=== PATIENT | male | born 1930 | race Caucasian/White ===

== ENCOUNTER → 2017-03-31 | Outpatient (REF) | payer MEDICARE, MEDICAID ==
[~2017-03-31] MED LIST: AMLO25TA PO; DORZ2SOL5 OU; DUTA1CAP PO; FENO48TA2 PO; FLOM5CAP PO; HYDR12.55 PO; IPRASOL4 INH; K-TA10TA2 PO; LATA5OPD OU; SIMV40TA2 PO; STOO100C PO; VENO20IN IV; VITA400T2 PO; WARF05TA PO
[2017-03-31 20:32] LABS: PERCENT SATURATION 7.4 % (19.7-50.0)
[2017-03-31 22:11] LABS: FOLATE 13.2 NG/ML
== END ==
LOC: M LAB REF 17:34
PROVIDERS: ATTEND Internal Medicine Nephrology
DX: D64.9 Anemia, unspecified (principal)

== ENCOUNTER → 2017-05-24 | Outpatient (CLI) | payer MEDICARE, MEDICAID ==
[~2017-05-24] MED LIST changes: +ISOVUE-300 61% 50ML VIAL (Q9967) As Ordered ONE; +LIDOCAINE 1% MDV 20ML VIAL As Ordered ONE
--- NOTE | 2017-06-01 16:53 | REPIR ---
DATE OF PROCEDURE: 05/24/2017 PREPROCEDURE DIAGNOSES: Left lower extremity swelling and pain. Left lower extremity deep venous thrombosis (DVT). History of DVT and pulmonary embolus in 2006. Colon cancer. POSTPROCEDURE DIAGNOSIS: Left lower extremity swelling and pain. Left lower extremity deep venous thrombosis (DVT). History of DVT and pulmonary embolus in 2006. Colon cancer. . OPERATIVE PROCEDURE: Ultrasound guided right common femoral vein cannulation, inferior vena cava catheter placement with inferior venacavogram, inferior vena cava filter placement with Celect filter. SURGEON: Gregory Simental MD [employer]PECT[employer] DETAIL: Juany Shelton ANESTHESIA: Local with 10 mL of 2% lidocaine. FLUORO TIME: 2.222 minutes. CONTRAST: None. COMPLICATIONS: None. DRAINS: None. SPECIMENS: None. IMPLANTS: Celect filter in the inferior vena cava. INDICATION: The patient is an 86-year-old male with left lower extremity DVT and inability to undergo anticoagulation due to colon cancer which will require surgery. The patient will undergo and IVC filter placement for prevention of pulmonary embolus. The risks, benefits and alternative treatment options were discussed with the patient. DESCRIPTION OF PROCEDURE: The patient was taken to the angiography suite, placed supine on the angiography table and then prepped and draped in a standard surgical fashion. Ultrasound was used to guide cannulation of the right common femoral vein with a micropuncture needle after evaluating the right common femoral vein which was noted to be easily compressible and free of thrombus and widely patent. The ultrasound was used to guide cannulation with real-time concurrent visualization of the entry of the micropuncture needle into the right common femoral vein with a hard copy image preserved. The micropuncture wire was advanced through the micropuncture needle which was upsized to a micropuncture sheath. A wire was advanced through the micropuncture sheath which was upsized to a sheath which was placed in the inferior vena cava. Due to the patient's chronic renal insufficiency an inferior venacavogram was not performed and the inferior vena cava filter was placed at the lumbar 3, lumbar 4 level under fluoroscopic guidance. Final fluoroscopic showed the filter to be in good position and good alignment. The sheath was removed and manual compression applied for hemostasis. Dressings were then applied. The patient tolerated the procedure well. All instrument, sponge and needle counts were correct at the end of the case. There were no complications. Dr. Simental was present for and directed the entire case. The patient was transferred to the holding area and subsequently transferred back to [facility] in stable condition. RADIOLOGIC SUPERVISION AND INTERPRETATION: The ultrasound showed the right common femoral vein to be easily compressible, widely patent and free of thrombus. Ultrasound was used to guide cannulation with real-time concurrent visualization of the entry of the needle into the right common femoral vein and catheter was placed in the inferior vena cava at the lumbar 3-4 level. The filter was then deployed at the lumbar 3-4 level with no venogram being performed due to chronic renal insufficiency.
== END | disposition home or self-care (01) ==
LOC: M IRPRO 12:00
PROVIDERS: ATTEND Internal Medicine Cardiovascular Disease
DX: I82.4Z2 Acute embolism and thrombosis of unspecified deep veins of left distal lower extremity (principal); C18.9 Malignant neoplasm of colon, unspecified; Z86.711 Personal history of pulmonary embolism
CPT/HCPCS: 37191; C1769; C1880; C1894; Q9967

== ENCOUNTER 2017-06-22 13:11 | Inpatient (IN) | payer MEDICARE, MEDICAID ==
[~2017-06-22 13:11] MED LIST changes: -AMLO25TA PO; -DORZ2SOL5 OU; -DUTA1CAP PO; -FENO48TA2 PO; -FLOM5CAP PO; -HYDR12.55 PO; -IPRASOL4 INH; -ISOVUE-300 61% 50ML VIAL (Q9967) As Ordered ONE; -K-TA10TA2 PO; -LATA5OPD OU; -LIDOCAINE 1% MDV 20ML VIAL As Ordered ONE; +MIRALAX *UNIT DOSE* 17GM PACKET PO; -SIMV40TA2 PO; -STOO100C PO; -VENO20IN IV; -VITA400T2 PO; -WARF05TA PO
[2017-06-22] MEDS: WARFARIN SOD 2 MG TAB PO (17:07)
[2017-06-22] MEDS: DOCUSATE SODIUM 100 MG CAP PO (21:19)
[2017-06-22] MEDS: SIMVASTATIN 40 MG TAB PO (21:19)
[2017-06-22] MEDS: LATANOPROST 0.005% OPHTH SOLN 2.5 ML OU (21:19)
[2017-06-22] MEDS: TAMSULOSIN 0.4 MG CAP PO (21:19)
[2017-06-22] MEDS: DUTASTERIDE 0.5 MG CAP (AVODART) PO (21:19)
[2017-06-23 07:29] LABS: BASO % 0.5 % (0.0-1.0); EOS # 0.3 10^3/uL (0.0-0.50); HEMOGLOBIN 8.9 g/dl (14.0-18.0); IMMATURE GRANULOCYTE % 0.4 % (0-0); LYMPH # 1.7 10^3/uL (1.5-4.5); LYMPH % 21.4 % (24.0-44.0); MEAN CORPUSCULAR HEMOGLOBIN 27.6 pg (27.0-33.0); MEAN CORPUSCULAR HGB CONC 30.7 g/dl (32.0-36.5); MEAN CORPUSCULAR VOLUME 90.1 fl (80.0-96.0); MONO # 0.8 10^3/uL (0.0-0.8); MONO % 10.1 % (0.0-5.0); NEUTROPHILS % 63.6 % (36.0-66.0); PLATELET COUNT, AUTOMATED 377 10^3/uL (150-450); RED BLOOD COUNT 3.22 10^6/uL (4.30-6.10); RED CELL DISTRIBUTION WIDTH 17.8 % (11.5-14.5); WHITE BLOOD COUNT 7.8 10^3/uL (4.0-10.0)
[2017-06-23 07:45] LABS: INR 2.33; PROTHROMBIN TIME 26.5 SECONDS (12.4-14.5)
[2017-06-23 07:48] LABS: ALBUMIN 2.2 GM/DL (3.2-5.2); ALBUMIN/GLOBULIN RATIO 0.67 (1.00-1.93); ALKALINE PHOSPHATASE 65 U/L (45-117); ALT/SGPT 18 U/L (12-78); ANION GAP 6 MEQ/L (8-16); AST/SGOT 18 U/L (7-37); BILIRUBIN,TOTAL 0.2 MG/DL (0.2-1.0); BLOOD UREA NITROGEN 19 MG/DL (7-18); CALCIUM LEVEL 8.1 MG/DL (8.8-10.2); CARBON DIOXIDE LEVEL 28 MEQ/L (21-32); CHLORIDE LEVEL 108 MEQ/L (98-107); FERRITIN 434 NG/ML (26-388); GLOMERULAR FILTRATION RATE > 60.0 (>35); GLUCOSE, FASTING 81 MG/DL (83-110); IRON (FE) 59 UG/DL (65-175); PERCENT SATURATION 22.9 % (19.7-50.0); POTASSIUM SERUM 4.5 MEQ/L (3.5-5.1); SODIUM LEVEL 142 MEQ/L (136-145); TOTAL IRON BINDING CAPACITY 258 UG/DL (250-450); TOTAL PROTEIN 5.5 GM/DL (6.4-8.2)
[2017-06-23] MEDS: DOCUSATE SODIUM 100 MG CAP PO ×2 (08:13→21:00)
[2017-06-23] MEDS: FENOFIBRATE 48 MG TAB (TRICOR) PO (08:13)
[2017-06-23] MEDS: VITAMIN D (CHOLECALCIFEROL) 400 INTERNATIONAL UNITS TAB PO (08:13)
[2017-06-23] MEDS: traMADol 50 MG TAB PO (08:59)
[2017-06-23 10:35] LABS: VITAMIN B12 LEVEL 242 PG/ML (247-911)
[2017-06-23 13:10] LABS: KETONE, URINE AUTO RFX NEGATIVE (NEGATIVE); MUCUS, URINE RFX SMALL (NEGATIVE); NITRITE, URINE AUTO RFX NEGATIVE (NEGATIVE); RBC, URINE AUTO RFX 15 /HPF (0-3); SPECIFIC GRAVITY UR AUTO RFX 1.019 (1.002-1.035); SQUAM EPITHELIAL CELL UR AURFX 0 /HPF (0-6)
[2017-06-23 13:19] LABS: LEUKOCYTE ESTERASE UR AUTO RFX 3+ (NEGATIVE)
[2017-06-23 13:20] LABS: WBC, URINE AUTO RFX 179 /HPF (0-3)
[2017-06-23] MEDS: WARFARIN SOD 1 MG TAB PO (17:15)
[2017-06-23] MEDS: DUTASTERIDE 0.5 MG CAP (AVODART) PO (21:20)
[2017-06-23] MEDS: SIMVASTATIN 40 MG TAB PO (21:20)
[2017-06-23] MEDS: LATANOPROST 0.005% OPHTH SOLN 2.5 ML OU (21:20)
[2017-06-23] MEDS: TAMSULOSIN 0.4 MG CAP PO (21:20)
[2017-06-24 07:04] LABS: HEMATOCRIT 28.1 % (42.0-52.0); HEMOGLOBIN 8.6 g/dl (14.0-18.0); MEAN CORPUSCULAR HEMOGLOBIN 27.7 pg (27.0-33.0); MEAN CORPUSCULAR HGB CONC 30.6 g/dl (32.0-36.5); MEAN CORPUSCULAR VOLUME 90.6 fl (80.0-96.0); PLATELET COUNT, AUTOMATED 390 10^3/uL (150-450); WHITE BLOOD COUNT 8.7 10^3/uL (4.0-10.0)
[2017-06-24 07:23] LABS: ALBUMIN 2.2 GM/DL (3.2-5.2); ALBUMIN/GLOBULIN RATIO 0.71 (1.00-1.93); ALKALINE PHOSPHATASE 64 U/L (45-117); ALT/SGPT 19 U/L (12-78); ANION GAP 8 MEQ/L (8-16); AST/SGOT 15 U/L (7-37); BILIRUBIN,TOTAL 0.1 MG/DL (0.2-1.0); BLOOD UREA NITROGEN 24 MG/DL (7-18); CALCIUM LEVEL 8.1 MG/DL (8.8-10.2); CARBON DIOXIDE LEVEL 25 MEQ/L (21-32); CHLORIDE LEVEL 109 MEQ/L (98-107); CREATININE FOR GFR 0.92 MG/DL (0.70-1.30); GLOMERULAR FILTRATION RATE > 60.0 (>35); GLUCOSE, FASTING 87 MG/DL (83-110); POTASSIUM SERUM 4.2 MEQ/L (3.5-5.1); SODIUM LEVEL 142 MEQ/L (136-145); TOTAL PROTEIN 5.3 GM/DL (6.4-8.2)
[2017-06-24 07:27] LABS: INR 2.25; PROTHROMBIN TIME 25.7 SECONDS (12.4-14.5)
[2017-06-24] MEDS: FENOFIBRATE 48 MG TAB (TRICOR) PO (08:40)
[2017-06-24] MEDS: DOCUSATE SODIUM 100 MG CAP PO ×2 (08:40→21:40)
[2017-06-24] MEDS: VITAMIN D (CHOLECALCIFEROL) 400 INTERNATIONAL UNITS TAB PO (08:40)
[2017-06-24] MEDS: traMADol 50 MG TAB PO (09:35)
[2017-06-24] MEDS: WARFARIN SOD 2 MG TAB PO (16:56)
[2017-06-24] MEDS: SIMVASTATIN 40 MG TAB PO (21:40)
[2017-06-24] MEDS: TAMSULOSIN 0.4 MG CAP PO (21:40)
[2017-06-24] MEDS: DUTASTERIDE 0.5 MG CAP (AVODART) PO (21:40)
[2017-06-24] MEDS: LATANOPROST 0.005% OPHTH SOLN 2.5 ML OU (21:41)
[2017-06-25 06:27] LABS: HEMATOCRIT 29.1 % (42.0-52.0); HEMOGLOBIN 8.8 g/dl (14.0-18.0); MEAN CORPUSCULAR HEMOGLOBIN 27.3 pg (27.0-33.0); MEAN CORPUSCULAR HGB CONC 30.2 g/dl (32.0-36.5); MEAN CORPUSCULAR VOLUME 90.4 fl (80.0-96.0); PLATELET COUNT, AUTOMATED 382 10^3/uL (150-450); RED BLOOD COUNT 3.22 10^6/uL (4.30-6.10); RED CELL DISTRIBUTION WIDTH 17.9 % (11.5-14.5); WHITE BLOOD COUNT 10.1 10^3/uL (4.0-10.0)
[2017-06-25 06:53] LABS: INR 2.07
[2017-06-25 06:55] LABS: ALBUMIN 2.4 GM/DL (3.2-5.2); ALBUMIN/GLOBULIN RATIO 0.83 (1.00-1.93); ALKALINE PHOSPHATASE 72 U/L (45-117); ALT/SGPT 20 U/L (12-78); ANION GAP 3 MEQ/L (8-16); AST/SGOT 23 U/L (7-37); BILIRUBIN,TOTAL 0.2 MG/DL (0.2-1.0); BLOOD UREA NITROGEN 24 MG/DL (7-18); CALCIUM LEVEL 7.9 MG/DL (8.8-10.2); CARBON DIOXIDE LEVEL 28 MEQ/L (21-32); CHLORIDE LEVEL 108 MEQ/L (98-107); CREATININE FOR GFR 0.84 MG/DL (0.70-1.30); GLOMERULAR FILTRATION RATE > 60.0 (>35); GLUCOSE, FASTING 84 MG/DL (83-110); POTASSIUM SERUM 4.8 MEQ/L (3.5-5.1); SODIUM LEVEL 139 MEQ/L (136-145); TOTAL PROTEIN 5.3 GM/DL (6.4-8.2)
[2017-06-25] MEDS: DOXYCYCLINE HYCLATE 100 MG TAB PO ×2 (09:00→18:29)
[2017-06-25] MEDS: VITAMIN D (CHOLECALCIFEROL) 400 INTERNATIONAL UNITS TAB PO (09:18)
[2017-06-25] MEDS: DOCUSATE SODIUM 100 MG CAP PO ×2 (09:18→22:01)
[2017-06-25] MEDS: FENOFIBRATE 48 MG TAB (TRICOR) PO (09:18)
[2017-06-25] MEDS: COSOPT OU ×2 (18:00→22:30)
[2017-06-25] MEDS: WARFARIN SOD 2 MG TAB PO (18:05)
[2017-06-25] MEDS: ACETAMINOPHEN TAB 650MG DOSE (2X325MG) PO (18:29)
[2017-06-25] MEDS: SIMVASTATIN 40 MG TAB PO (22:01)
[2017-06-25] MEDS: DUTASTERIDE 0.5 MG CAP (AVODART) PO (22:01)
[2017-06-25] MEDS: LATANOPROST 0.005% OPHTH SOLN 2.5 ML OU (22:01)
[2017-06-25] MEDS: TAMSULOSIN 0.4 MG CAP PO (22:01)
[2017-06-26] MEDS: ACETAMINOPHEN TAB 650MG DOSE (2X325MG) PO ×2 (06:15→17:23)
[2017-06-26] MEDS: IPRATROPIUM 0.5MG/ALBUTEROL 2.5MG INH SOL UD 3ML (DUONEB)(J7620) NEB (06:51)
[2017-06-26 07:22] LABS: INR 1.73; PROTHROMBIN TIME 20.8 SECONDS (12.4-14.5)
[2017-06-26] MEDS: FENOFIBRATE 48 MG TAB (TRICOR) PO (08:52)
[2017-06-26] MEDS: VITAMIN D (CHOLECALCIFEROL) 400 INTERNATIONAL UNITS TAB PO (08:52)
[2017-06-26] MEDS: DOCUSATE SODIUM 100 MG CAP PO ×2 (08:52→21:40)
[2017-06-26] MEDS: DOXYCYCLINE HYCLATE 100 MG TAB PO ×2 (08:52→21:40)
[2017-06-26] MEDS: COSOPT OU ×2 (08:53→17:24)
[2017-06-26 14:50] LABS: BASO % 0.2 % (0.0-1.0); EOS % 0.3 % (0.0-3.0); HEMATOCRIT 29.1 % (42.0-52.0); HEMOGLOBIN 8.8 g/dl (14.0-18.0); IMMATURE GRANULOCYTE # 0.1 10^3/uL (0-0); IMMATURE GRANULOCYTE % 0.6 % (0-0); LYMPH # 0.9 10^3/uL (1.5-4.5); LYMPH % 10.4 % (24.0-44.0); MEAN CORPUSCULAR HEMOGLOBIN 27.7 pg (27.0-33.0); MEAN CORPUSCULAR HGB CONC 30.2 g/dl (32.0-36.5); MEAN CORPUSCULAR VOLUME 91.5 fl (80.0-96.0); MONO # 0.8 10^3/uL (0.0-0.8); MONO % 9.5 % (0.0-5.0); NEUTROPHILS # 6.9 10^3/uL (1.8-7.7); PLATELET COUNT, AUTOMATED 312 10^3/uL (150-450); RED BLOOD COUNT 3.18 10^6/uL (4.30-6.10); RED CELL DISTRIBUTION WIDTH 18.3 % (11.5-14.5); WHITE BLOOD COUNT 8.7 10^3/uL (4.0-10.0)
[2017-06-26 15:14] LABS: ANION GAP 5 MEQ/L (8-16); BLOOD UREA NITROGEN 24 MG/DL (7-18); C REACTIVE PROTEIN QUANTITATIV 7.73 MG/DL (0.00-0.30); CALCIUM LEVEL 8.4 MG/DL (8.8-10.2); CARBON DIOXIDE LEVEL 31 MEQ/L (21-32); CHLORIDE LEVEL 103 MEQ/L (98-107); CREATININE FOR GFR 0.98 MG/DL (0.70-1.30); GLOMERULAR FILTRATION RATE > 60.0 (>35); GLUCOSE, FASTING 96 MG/DL (83-110); POTASSIUM SERUM 4.3 MEQ/L (3.5-5.1); SODIUM LEVEL 139 MEQ/L (136-145)
[2017-06-26 15:16] LABS: LACTIC ACID SEPSIS PROTOCOL 1.8 MMOL/L (0.4-2.0)
[2017-06-26] MEDS: LevoFLOXacin 500 MG TABLET PO (15:19)
[2017-06-26] MEDS: WARFARIN SOD 2 MG TAB PO (17:22)
[2017-06-26] MEDS: LATANOPROST 0.005% OPHTH SOLN 2.5 ML OU (21:00)
[2017-06-26] MEDS: SIMVASTATIN 40 MG TAB PO (21:39)
[2017-06-26] MEDS: TAMSULOSIN 0.4 MG CAP PO (21:40)
[2017-06-26] MEDS: DUTASTERIDE 0.5 MG CAP (AVODART) PO (21:40)
[2017-06-27] MEDS: LevoFLOXacin 500 MG TABLET PO (05:50)
[2017-06-27] MEDS: ACETAMINOPHEN TAB 650MG DOSE (2X325MG) PO ×2 (05:50→13:33)
[2017-06-27] MEDS: FENOFIBRATE 48 MG TAB (TRICOR) PO (08:24)
[2017-06-27] MEDS: VITAMIN D (CHOLECALCIFEROL) 400 INTERNATIONAL UNITS TAB PO (08:24)
[2017-06-27] MEDS: DOCUSATE SODIUM 100 MG CAP PO ×2 (08:24→21:00)
[2017-06-27] MEDS: DOXYCYCLINE HYCLATE 100 MG TAB PO ×2 (08:24→21:08)
[2017-06-27] MEDS: COSOPT OU ×2 (08:25→17:27)
[2017-06-27 08:35] LABS: HEMATOCRIT 30.8 % (42.0-52.0); HEMOGLOBIN 9.4 g/dl (14.0-18.0); MEAN CORPUSCULAR HEMOGLOBIN 27.6 pg (27.0-33.0); MEAN CORPUSCULAR HGB CONC 30.5 g/dl (32.0-36.5); MEAN CORPUSCULAR VOLUME 90.6 fl (80.0-96.0); PLATELET COUNT, AUTOMATED 314 10^3/uL (150-450); WHITE BLOOD COUNT 8.9 10^3/uL (4.0-10.0)
[2017-06-27 08:47] LABS: INR 1.61; PROTHROMBIN TIME 19.6 SECONDS (12.4-14.5)
[2017-06-27 09:38] LABS: ALBUMIN 2.5 GM/DL (3.2-5.2); ALBUMIN/GLOBULIN RATIO 0.71 (1.00-1.93); ALKALINE PHOSPHATASE 66 U/L (45-117); ALT/SGPT 24 U/L (12-78); ANION GAP 7 MEQ/L (8-16); AST/SGOT 24 U/L (7-37); BILIRUBIN,TOTAL 0.3 MG/DL (0.2-1.0); BLOOD UREA NITROGEN 30 MG/DL (7-18); CALCIUM LEVEL 8.5 MG/DL (8.8-10.2); CARBON DIOXIDE LEVEL 29 MEQ/L (21-32); CHLORIDE LEVEL 104 MEQ/L (98-107); CREATININE FOR GFR 1.19 MG/DL (0.70-1.30); GLOMERULAR FILTRATION RATE > 60.0 (>35); GLUCOSE, FASTING 134 MG/DL (83-110); POTASSIUM SERUM 4.2 MEQ/L (3.5-5.1); SODIUM LEVEL 140 MEQ/L (136-145)
[2017-06-27] MEDS: WARFARIN SOD 5 MG TAB PO (17:27)
[2017-06-27] MEDS: DUTASTERIDE 0.5 MG CAP (AVODART) PO (21:08)
[2017-06-27] MEDS: SIMVASTATIN 40 MG TAB PO (21:08)
[2017-06-27] MEDS: TAMSULOSIN 0.4 MG CAP PO (21:08)
[2017-06-27] MEDS: LATANOPROST 0.005% OPHTH SOLN 2.5 ML OU (21:09)
[2017-06-28] MEDS: LevoFLOXacin 500 MG TABLET PO (05:42)
[2017-06-28 07:25] LABS: HEMATOCRIT 26.7 % (42.0-52.0); HEMOGLOBIN 8.3 g/dl (14.0-18.0); MEAN CORPUSCULAR HEMOGLOBIN 27.9 pg (27.0-33.0); MEAN CORPUSCULAR HGB CONC 31.1 g/dl (32.0-36.5); MEAN CORPUSCULAR VOLUME 89.6 fl (80.0-96.0); PLATELET COUNT, AUTOMATED 300 10^3/uL (150-450); RED BLOOD COUNT 2.98 10^6/uL (4.30-6.10); RED CELL DISTRIBUTION WIDTH 18.1 % (11.5-14.5)
[2017-06-28 07:32] LABS: INR 1.73; PROTHROMBIN TIME 20.7 SECONDS (12.4-14.5)
[2017-06-28] MEDS: VITAMIN D (CHOLECALCIFEROL) 400 INTERNATIONAL UNITS TAB PO (07:43)
[2017-06-28] MEDS: FENOFIBRATE 48 MG TAB (TRICOR) PO (07:43)
[2017-06-28] MEDS: DOXYCYCLINE HYCLATE 100 MG TAB PO ×2 (07:43→21:13)
[2017-06-28] MEDS: COSOPT OU ×2 (07:43→17:00)
[2017-06-28] MEDS: DOCUSATE SODIUM 100 MG CAP PO ×2 (07:44→21:13)
[2017-06-28 07:50] LABS: ALBUMIN 2.2 GM/DL (3.2-5.2); ALBUMIN/GLOBULIN RATIO 0.59 (1.00-1.93); ALKALINE PHOSPHATASE 59 U/L (45-117); ALT/SGPT 19 U/L (12-78); ANION GAP 4 MEQ/L (8-16); AST/SGOT 23 U/L (7-37); BILIRUBIN,TOTAL 0.3 MG/DL (0.2-1.0); BLOOD UREA NITROGEN 27 MG/DL (7-18); CALCIUM LEVEL 8.2 MG/DL (8.8-10.2); CARBON DIOXIDE LEVEL 29 MEQ/L (21-32); CHLORIDE LEVEL 108 MEQ/L (98-107); CREATININE FOR GFR 0.95 MG/DL (0.70-1.30); GLOMERULAR FILTRATION RATE > 60.0 (>35); GLUCOSE, FASTING 96 MG/DL (83-110); SODIUM LEVEL 141 MEQ/L (136-145); TOTAL PROTEIN 5.9 GM/DL (6.4-8.2)
[2017-06-28] MEDS: ACETAMINOPHEN TAB 650MG DOSE (2X325MG) PO (14:06)
[2017-06-28] MEDS: WARFARIN SOD 2.5 MG TAB PO (16:59)
[2017-06-28] MEDS: DUTASTERIDE 0.5 MG CAP (AVODART) PO (21:13)
[2017-06-28] MEDS: TAMSULOSIN 0.4 MG CAP PO (21:13)
[2017-06-28] MEDS: LATANOPROST 0.005% OPHTH SOLN 2.5 ML OU (21:13)
[2017-06-28] MEDS: SIMVASTATIN 40 MG TAB PO (21:13)
[2017-06-29] MEDS: LevoFLOXacin 500 MG TABLET PO (05:59)
[2017-06-29 06:51] LABS: HEMOGLOBIN 8.2 g/dl (14.0-18.0); MEAN CORPUSCULAR HEMOGLOBIN 27.2 pg (27.0-33.0); MEAN CORPUSCULAR HGB CONC 30.4 g/dl (32.0-36.5); MEAN CORPUSCULAR VOLUME 89.7 fl (80.0-96.0); PLATELET COUNT, AUTOMATED 289 10^3/uL (150-450); RED BLOOD COUNT 3.01 10^6/uL (4.30-6.10); RED CELL DISTRIBUTION WIDTH 18.1 % (11.5-14.5); WHITE BLOOD COUNT 5.7 10^3/uL (4.0-10.0)
[2017-06-29 07:09] LABS: INR 1.74; PROTHROMBIN TIME 20.9 SECONDS (12.4-14.5)
[2017-06-29] MEDS: DOXYCYCLINE HYCLATE 100 MG TAB PO ×2 (09:07→20:26)
[2017-06-29] MEDS: VITAMIN D (CHOLECALCIFEROL) 400 INTERNATIONAL UNITS TAB PO (09:07)
[2017-06-29] MEDS: COSOPT OU ×2 (09:07→17:01)
[2017-06-29] MEDS: ACETAMINOPHEN TAB 650MG DOSE (2X325MG) PO (09:07)
[2017-06-29] MEDS: FENOFIBRATE 48 MG TAB (TRICOR) PO (09:07)
[2017-06-29] MEDS: DOCUSATE SODIUM 100 MG CAP PO ×2 (09:07→20:26)
[2017-06-29] MEDS: traMADol 50 MG TAB PO (12:50)
[2017-06-29] MEDS: WARFARIN SOD 5 MG TAB PO (17:01)
[2017-06-29] MEDS: SIMVASTATIN 40 MG TAB PO (20:26)
[2017-06-29] MEDS: DUTASTERIDE 0.5 MG CAP (AVODART) PO (20:26)
[2017-06-29] MEDS: LATANOPROST 0.005% OPHTH SOLN 2.5 ML OU (20:26)
[2017-06-29] MEDS: TAMSULOSIN 0.4 MG CAP PO (20:26)
[2017-06-30] MEDS: LevoFLOXacin 500 MG TABLET PO (05:35)
[2017-06-30 07:13] LABS: HEMATOCRIT 27.1 % (42.0-52.0); HEMOGLOBIN 8.2 g/dl (14.0-18.0); MEAN CORPUSCULAR HEMOGLOBIN 27.2 pg (27.0-33.0); MEAN CORPUSCULAR HGB CONC 30.3 g/dl (32.0-36.5); PLATELET COUNT, AUTOMATED 282 10^3/uL (150-450); RED BLOOD COUNT 3.01 10^6/uL (4.30-6.10); RED CELL DISTRIBUTION WIDTH 17.9 % (11.5-14.5); WHITE BLOOD COUNT 4.4 10^3/uL (4.0-10.0)
[2017-06-30 07:24] LABS: ALBUMIN 2.1 GM/DL (3.2-5.2); ALBUMIN/GLOBULIN RATIO 0.58 (1.00-1.93); ALKALINE PHOSPHATASE 54 U/L (45-117); ALT/SGPT 25 U/L (12-78); ANION GAP 4 MEQ/L (8-16); AST/SGOT 29 U/L (7-37); BILIRUBIN,TOTAL 0.2 MG/DL (0.2-1.0); BLOOD UREA NITROGEN 32 MG/DL (7-18); CALCIUM LEVEL 8.3 MG/DL (8.8-10.2); CARBON DIOXIDE LEVEL 29 MEQ/L (21-32); CHLORIDE LEVEL 110 MEQ/L (98-107); CREATININE FOR GFR 0.94 MG/DL (0.70-1.30); GLOMERULAR FILTRATION RATE > 60.0 (>35); GLUCOSE, FASTING 88 MG/DL (83-110); POTASSIUM SERUM 4.3 MEQ/L (3.5-5.1); SODIUM LEVEL 143 MEQ/L (136-145); TOTAL PROTEIN 5.7 GM/DL (6.4-8.2)
[2017-06-30 07:26] LABS: INR 2.51; PROTHROMBIN TIME 28.1 SECONDS (12.4-14.5)
[2017-06-30] MEDS: COSOPT OU ×2 (08:00→18:00)
[2017-06-30] MEDS: DOXYCYCLINE HYCLATE 100 MG TAB PO ×2 (10:13→20:35)
[2017-06-30] MEDS: DOCUSATE SODIUM 100 MG CAP PO ×2 (10:13→20:35)
[2017-06-30] MEDS: FENOFIBRATE 48 MG TAB (TRICOR) PO (10:13)
[2017-06-30] MEDS: VITAMIN D (CHOLECALCIFEROL) 400 INTERNATIONAL UNITS TAB PO (10:13)
[2017-06-30] MEDS: WARFARIN SOD 2.5 MG TAB PO (17:00)
[2017-06-30] MEDS: LATANOPROST 0.005% OPHTH SOLN 2.5 ML OU (20:35)
[2017-06-30] MEDS: DUTASTERIDE 0.5 MG CAP (AVODART) PO (20:35)
[2017-06-30] MEDS: SIMVASTATIN 40 MG TAB PO (20:35)
[2017-06-30] MEDS: TAMSULOSIN 0.4 MG CAP PO (20:35)
[2017-07-01] MEDS: LevoFLOXacin 500 MG TABLET PO (05:31)
[2017-07-01 07:18] LABS: HEMATOCRIT 27.6 % (42.0-52.0); HEMOGLOBIN 8.4 g/dl (14.0-18.0); MEAN CORPUSCULAR HEMOGLOBIN 27.3 pg (27.0-33.0); MEAN CORPUSCULAR HGB CONC 30.4 g/dl (32.0-36.5); MEAN CORPUSCULAR VOLUME 89.6 fl (80.0-96.0); PLATELET COUNT, AUTOMATED 299 10^3/uL (150-450); RED BLOOD COUNT 3.08 10^6/uL (4.30-6.10); RED CELL DISTRIBUTION WIDTH 17.8 % (11.5-14.5); WHITE BLOOD COUNT 4.9 10^3/uL (4.0-10.0)
[2017-07-01 07:31] LABS: INR 2.93; PROTHROMBIN TIME 31.9 SECONDS (12.4-14.5)
[2017-07-01] MEDS: FENOFIBRATE 48 MG TAB (TRICOR) PO (08:47)
[2017-07-01] MEDS: DOXYCYCLINE HYCLATE 100 MG TAB PO (08:47)
[2017-07-01] MEDS: DOCUSATE SODIUM 100 MG CAP PO (08:47)
[2017-07-01] MEDS: VITAMIN D (CHOLECALCIFEROL) 400 INTERNATIONAL UNITS TAB PO (08:47)
[2017-07-01] MEDS: COSOPT OU (08:47)
== END 2017-07-01 11:55 | disposition home health service (06) | DRG 949 ==
LOC: M PM&R 13:11
DX: Z48.3 Aftercare following surgery for neoplasm (principal); J18.9 Pneumonia, unspecified organism; C18.2 Malignant neoplasm of ascending colon; E46 Unspecified protein-calorie malnutrition; N39.0 Urinary tract infection, site not specified; K21.9 Gastro-esophageal reflux disease without esophagitis; N18.3 Chronic kidney disease, stage 3 (moderate); N40.1 Benign prostatic hyperplasia with lower urinary tract symptoms; H40.9 Unspecified glaucoma; D64.9 Anemia, unspecified; B95.2 Enterococcus as the cause of diseases classified elsewhere; E78.5 Hyperlipidemia, unspecified; H91.93 Unspecified hearing loss, bilateral; I12.9 Hypertensive chronic kidney disease with stage 1 through stage 4 chronic kidney disease, or unspecified chronic kidney disease; Z86.711 Personal history of pulmonary embolism; Z95.9 Presence of cardiac and vascular implant and graft, unspecified; Z91.048 Other nonmedicinal substance allergy status; Z79.01 Long term (current) use of anticoagulants; Z79.899 Other long term (current) drug therapy; Z97.4 Presence of external hearing-aid; Z96.0 Presence of urogenital implants; Z86.718 Personal history of other venous thrombosis and embolism; Z90.49 Acquired absence of other specified parts of digestive tract

== ENCOUNTER → 2018-11-07 | Outpatient (REF) | payer MEDICARE, MEDICAID ==
[~2018-11-07] MED LIST changes: +AMLO25TA PO; +COUM2.5T17 PO; +DORZ2SOL5 OU; +DOXY-350 PO; +DUTA1CAP PO; +FENO45CA3 PO; +FENO48TA2 PO; +FLOM0.4C39 PO; +HYDR12.55 PO; +IPRA0.00 INH; +K-TA10TA2 PO; +LATA0.0013 OU; +LEVA1TAB2 PO; +MIRA33504 PO; -MIRALAX *UNIT DOSE* 17GM PACKET PO; +SIMV40TA2 PO; +STOO100C PO; +TYLE325T5 PO; +VENO20IN IV; +VITA400T2 PO; +WARF05TA PO; +WARF4TAB51 PO; +WARF4TAB52 PO
[2018-11-07 18:25] LABS: BASO % 0.3 % (0.0-1.0); EOS # 0.1 10^3/uL (0.0-0.50); EOS % 1.5 % (0.0-3.0); HEMATOCRIT 43.7 % (42.0-52.0); HEMOGLOBIN 13.4 g/dl (13.5-17.5); LYMPH # 1.4 10^3/uL (1.5-4.5); LYMPH % 18.5 % (24.0-44.0); MEAN CORPUSCULAR HEMOGLOBIN 29.6 pg (27.0-33.0); MEAN CORPUSCULAR HGB CONC 30.7 g/dl (32.0-36.5); MEAN CORPUSCULAR VOLUME 96.7 fl (80.0-96.0); MONO # 0.9 10^3/uL (0.0-0.8); MONO % 12.8 % (0.0-5.0); NEUTROPHILS # 4.9 10^3/uL (1.8-7.7); NEUTROPHILS % 66.8 % (36.0-66.0); PLATELET COUNT, AUTOMATED 295 10^3/uL (150-450); RED BLOOD COUNT 4.52 10^6/uL (4.30-6.10); WHITE BLOOD COUNT 7.4 10^3/uL (4.0-10.0)
== END ==
LOC: M LAB REF 17:11
PROVIDERS: ATTEND Internal Medicine Nephrology
DX: D50.9 Iron deficiency anemia, unspecified (principal)

== ENCOUNTER → 2020-08-14 | Outpatient (REF) ==
[~2020-08-14] MED LIST changes: -DUTA1CAP PO; +DUTA1CAP2 PO; -FENO48TA2 PO; +FENO48TA7 PO; +MM S100C PO; -SIMV40TA2 PO; +SIMV40TA20 PO; -STOO100C PO
[2020-08-14 08:59] LABS: INR 1.66
== END ==
LOC: SKLAB2 08:57
DX: Z51.81 Encounter for therapeutic drug level monitoring (principal); Z79.899 Other long term (current) drug therapy

== ENCOUNTER → 2020-08-20 | Outpatient (REF) | payer OTHER | LOC: SKLAB2 08:00 | PROVIDERS: ATTEND Internal Medicine | DX: Z11.52 Encounter for screening for COVID-19 (principal) ==

== ENCOUNTER → 2020-08-21 | Outpatient (REF) | payer MEDICAID, MEDICARE ==
[2020-08-21 08:43] LABS: HEMATOCRIT 34.7 % (42.0-52.0); HEMOGLOBIN 10.9 g/dl (13.5-17.5); MEAN CORPUSCULAR HEMOGLOBIN 29.5 pg (27.0-33.0); MEAN CORPUSCULAR HGB CONC 31.4 g/dl (32.0-36.5); PLATELET COUNT, AUTOMATED 245 10^3/uL (150-450); RED BLOOD COUNT 3.69 10^6/uL (4.30-6.10); WHITE BLOOD COUNT 7.8 10^3/uL (4.0-10.0)
[2020-08-21 09:11] LABS: ALBUMIN 2.6 GM/DL (3.2-5.2); ALT/SGPT 30 U/L (12-78); BILIRUBIN,TOTAL 0.3 MG/DL (0.2-1.0); BLOOD UREA NITROGEN 23 MG/DL (7-18); CALCIUM LEVEL 8.4 MG/DL (8.8-10.2); CARBON DIOXIDE LEVEL 26 MEQ/L (21-32); CHLORIDE LEVEL 110 MEQ/L (98-107); CREATININE FOR GFR 1.03 MG/DL (0.70-1.30); GLOMERULAR FILTRATION RATE > 60.0 (>35); GLUCOSE, FASTING 79 MG/DL (70-100); IRON (FE) 66 UG/DL (65-175); PERCENT SATURATION 24.1 % (19.7-50.0); POTASSIUM SERUM 4.4 MEQ/L (3.5-5.1); SODIUM LEVEL 142 MEQ/L (136-145); TOTAL IRON BINDING CAPACITY 274 UG/DL (250-450); TOTAL PROTEIN 5.6 GM/DL (6.4-8.2)
== END ==
LOC: SKLAB5 07:44
DX: N18.9 Chronic kidney disease, unspecified (principal); D63.1 Anemia in chronic kidney disease; Z86.711 Personal history of pulmonary embolism; Z86.718 Personal history of other venous thrombosis and embolism; Z79.899 Other long term (current) drug therapy

== ENCOUNTER → 2020-08-27 | Outpatient (REF) | payer MEDICARE, MEDICAID | LOC: SKLAB5 07:09 | PROVIDERS: ATTEND Internal Medicine | DX: Z20.822 Contact with and (suspected) exposure to COVID-19 (principal) ==

== ENCOUNTER → 2020-09-12 | Outpatient (REF) | payer MEDICARE, MEDICAID | LOC: SKLAB5 07:02 | PROVIDERS: ATTEND Internal Medicine | DX: Z20.822 Contact with and (suspected) exposure to COVID-19 (principal) ==

== ENCOUNTER → 2020-09-16 | Outpatient (REF) | payer MEDICARE, MEDICAID ==
[2020-09-16 09:12] LABS: BASO % 0.3 % (0.0-1.0); EOS # 0.3 10^3/uL (0.0-0.5); EOS % 4.2 % (0.0-3.0); HEMATOCRIT 40.7 % (42.0-52.0); HEMOGLOBIN 12.7 g/dl (13.5-17.5); LYMPH # 1.3 10^3/uL (1.5-5.0); LYMPH % 18.4 % (24.0-44.0); MEAN CORPUSCULAR HEMOGLOBIN 29.5 pg (27.0-33.0); MEAN CORPUSCULAR HGB CONC 31.2 g/dl (32.0-36.5); MEAN CORPUSCULAR VOLUME 94.4 fl (80.0-96.0); MONO # 0.9 10^3/uL (0.0-0.8); MONO % 13.4 % (2.0-8.0); NEUTROPHILS # 4.4 10^3/uL (1.5-8.5); NEUTROPHILS % 63.1 % (36.0-66.0); PLATELET COUNT, AUTOMATED 259 10^3/uL (150-450); RED BLOOD COUNT 4.31 10^6/uL (4.30-6.10)
[2020-09-16 11:17] LABS: VITAMIN B12 LEVEL 374 PG/ML (247-911)
[2020-09-16 12:43] LABS: FREE T4 0.78 NG/DL (0.76-1.46)
== END ==
LOC: SKLAB5 07:28
DX: E53.8 Deficiency of other specified B group vitamins (principal); F03.90 Unspecified dementia, unspecified severity, without behavioral disturbance, psychotic disturbance, mood disturbance, and anxiety; D64.9 Anemia, unspecified

== ENCOUNTER → 2020-10-02 | Outpatient (REF) | payer MEDICARE, MEDICAID ==
[2020-10-02 10:30] LABS: HEMATOCRIT 35.9 % (42.0-52.0); HEMOGLOBIN 11.3 g/dl (13.5-17.5); MEAN CORPUSCULAR HEMOGLOBIN 29.4 pg (27.0-33.0); MEAN CORPUSCULAR HGB CONC 31.5 g/dl (32.0-36.5); MEAN CORPUSCULAR VOLUME 93.5 fl (80.0-96.0); PLATELET COUNT, AUTOMATED 252 10^3/uL (150-450); RED BLOOD COUNT 3.84 10^6/uL (4.30-6.10); WHITE BLOOD COUNT 6.8 10^3/uL (4.0-10.0)
[2020-10-02 11:04] LABS: ALBUMIN 2.8 GM/DL (3.2-5.2); BLOOD UREA NITROGEN 26 MG/DL (7-18); CALCIUM LEVEL 8.5 MG/DL (8.8-10.2); CARBON DIOXIDE LEVEL 24 MEQ/L (21-32); CHLORIDE LEVEL 109 MEQ/L (98-107); CREATININE FOR GFR 0.88 MG/DL (0.70-1.30); GLOMERULAR FILTRATION RATE > 60.0 (>35); GLUCOSE, FASTING 180 MG/DL (70-100); MAGNESIUM LEVEL 1.9 MG/DL (1.8-2.4); PHOSPHORUS LEVEL 3.7 MG/DL (2.5-4.9); POTASSIUM SERUM 4.2 MEQ/L (3.5-5.1); SODIUM LEVEL 140 MEQ/L (136-145); URIC ACID 5.9 MG/DL (3.5-7.2)
[2020-10-02 12:11] LABS: PTH INTACT 72.4 PG/ML (18.5-88.0)
[2020-10-02 14:33] LABS: APPEARANCE, URINE CLOUDY (CLEAR); BACTERIA, URINE AUTO 2+ (NEGATIVE); BILIRUBIN, URINE AUTO NEGATIVE (NEGATIVE); BLOOD, URINE BLOOD 1+ (NEGATIVE); COLOR, URINE YELLOW (YELLOW); GLUCOSE, URINE (UA) AUTO NEGATIVE (NEGATIVE); KETONE, URINE AUTO NEGATIVE (NEGATIVE); LEUKOCYTE ESTERASE, URINE AUTO 3+ (NEGATIVE); MUCUS, URINE SMALL (NEGATIVE); NITRITE, URINE AUTO NEGATIVE (NEGATIVE); PROTEIN, URINE AUTO 1+ mg/dL (NEGATIVE); RBC, URINE AUTO 12 /HPF (0-3); SPECIFIC GRAVITY URINE AUTO 1.015 (1.002-1.035); SQUAMOUS EPITHELIAL CELL UR AU 0 /HPF (0-6); UROBILINOGEN, URINE AUTO 0.2 mg/dL (0.0-2.0); WBC, URINE AUTO 148 /HPF (0-3)
== END ==
LOC: SKLAB5 07:48
DX: N18.9 Chronic kidney disease, unspecified (principal)

== ENCOUNTER → 2021-02-12 | Outpatient (REF) | payer MEDICARE, MEDICAID ==
[~2021-02-12] MED LIST changes: +ACET1TAB55 PO; +CEFT1INJ5 IM; +DULC10SU2 PR; +ELIQ5TAB PO; -FENO48TA7 PO; +FENO48TA8 PO; +FLEEENE12 PR; +LATA0.0015 OU; +LEVO50TA5 PO; +MILKSUS PO
[2021-02-12 13:14] LABS: HEMATOCRIT 39.8 % (42.0-52.0); HEMOGLOBIN 12.3 g/dl (13.5-17.5); MEAN CORPUSCULAR HEMOGLOBIN 28.7 pg (27.0-33.0); MEAN CORPUSCULAR HGB CONC 30.9 g/dl (32.0-36.5); MEAN CORPUSCULAR VOLUME 92.8 fl (80.0-96.0); PLATELET COUNT, AUTOMATED 211 10^3/uL (150-450); RED BLOOD COUNT 4.29 10^6/uL (4.30-6.10); WHITE BLOOD COUNT 6.9 10^3/uL (4.0-10.0)
[2021-02-12 13:45] LABS: ALBUMIN 2.9 GM/DL (3.2-5.2); BILIRUBIN,TOTAL 0.3 MG/DL (0.2-1.0); CALCIUM LEVEL 8.6 MG/DL (8.8-10.2); CREATININE FOR GFR 1.38 MG/DL (0.70-1.30); GLOMERULAR FILTRATION RATE 51.6 (>35); PERCENT SATURATION 21.6 % (19.7-50.0); POTASSIUM SERUM 4.2 MEQ/L (3.5-5.1); TOTAL PROTEIN 6.2 GM/DL (6.4-8.2)
== END ==
LOC: SKLAB5 08:10
PROVIDERS: ATTEND Internal Medicine
DX: D64.9 Anemia, unspecified (principal)

== ENCOUNTER → 2021-02-24 | Outpatient (REF) | payer MEDICARE, MEDICAID ==
[~2021-02-24] MED LIST changes: +FENO48TA7 PO; -FENO48TA8 PO
[2021-02-24 12:34] LABS: APPEARANCE, URINE HAZY (CLEAR); BACTERIA, URINE AUTO 1+ (NEGATIVE); BILIRUBIN, URINE AUTO NEGATIVE (NEGATIVE); BLOOD, URINE BLOOD 2+ (NEGATIVE); COLOR, URINE YELLOW (YELLOW); GLUCOSE, URINE (UA) AUTO NEGATIVE (NEGATIVE); KETONE, URINE AUTO NEGATIVE (NEGATIVE); LEUKOCYTE ESTERASE, URINE AUTO 3+ (NEGATIVE); MUCUS, URINE SMALL (NEGATIVE); NITRITE, URINE AUTO NEGATIVE (NEGATIVE); PROTEIN, URINE AUTO NEGATIVE (NEGATIVE); RBC, URINE AUTO 20 /HPF (0-3); SPECIFIC GRAVITY URINE AUTO 1.006 (1.002-1.035); SQUAMOUS EPITHELIAL CELL UR AU 0 /HPF (0-6); UROBILINOGEN, URINE AUTO 0.2 mg/dL (0.0-2.0); WBC, URINE AUTO 90 /HPF (0-3)
[2021-02-24 12:37] LABS: HEMATOCRIT 40.1 % (42.0-52.0); HEMOGLOBIN 12.7 g/dl (13.5-17.5); MEAN CORPUSCULAR HEMOGLOBIN 28.7 pg (27.0-33.0); MEAN CORPUSCULAR HGB CONC 31.7 g/dl (32.0-36.5); MEAN CORPUSCULAR VOLUME 90.5 fl (80.0-96.0); PLATELET COUNT, AUTOMATED 167 10^3/uL (150-450); RED BLOOD COUNT 4.43 10^6/uL (4.30-6.10); WHITE BLOOD COUNT 12.3 10^3/uL (4.0-10.0)
[2021-02-24 12:51] LABS: CALCIUM LEVEL 8.4 MG/DL (8.8-10.2); CREATININE FOR GFR 1.62 MG/DL (0.70-1.30); GLOMERULAR FILTRATION RATE 42.9 (>35); POTASSIUM SERUM 4.2 MEQ/L (3.5-5.1)
== END ==
LOC: SKLAB5 11:34
PROVIDERS: ATTEND Internal Medicine
DX: R50.9 Fever, unspecified (principal)

== ENCOUNTER → 2021-02-25 | Outpatient (REF) | payer MEDICARE, MEDICAID ==
[~2021-02-25] MED LIST changes: -ACET1TAB55 PO; -CEFT1INJ5 IM; -DULC10SU2 PR; -ELIQ5TAB PO; -FLEEENE12 PR; -LATA0.0015 OU; -LEVO50TA5 PO; -MILKSUS PO
--- NOTE | 2021-02-25 10:37 | REP ---
INDICATION: FEVER. COMPARISON: 06/26/2017. TECHNIQUE: Single portable AP view of the chest was performed. FINDINGS: Mild fibrotic changes in the lung bases are stable. The heart is not significantly enlarged. Mediastinal silhouette is unchanged, with calcific plaque seen in the thoracic aorta. IMPRESSION: No acute pulmonary disease.Stable chronic findings. <Electronically signed by Ash Loyola > 02/25/21 [id number]
[2021-02-25 11:41] LABS: HEMOGLOBIN 12.2 g/dl (13.5-17.5); MEAN CORPUSCULAR HEMOGLOBIN 28.8 pg (27.0-33.0); MEAN CORPUSCULAR HGB CONC 31.3 g/dl (32.0-36.5); MEAN CORPUSCULAR VOLUME 92.2 fl (80.0-96.0); PLATELET COUNT, AUTOMATED 128 10^3/uL (150-450); RED BLOOD COUNT 4.23 10^6/uL (4.30-6.10); WHITE BLOOD COUNT 6.3 10^3/uL (4.0-10.0)
[2021-02-25 12:20] LABS: ALBUMIN 2.5 GM/DL (3.2-5.2); CALCIUM LEVEL 8.3 MG/DL (8.8-10.2); CREATININE FOR GFR 1.66 MG/DL (0.70-1.30); FREE T4 1.24 NG/DL (0.76-1.46); GLOMERULAR FILTRATION RATE 41.7 (>35); PHOSPHORUS LEVEL 2.9 MG/DL (2.5-4.9); POTASSIUM SERUM 3.6 MEQ/L (3.5-5.1); THYROID STIMULATING HORMONE 0.082 uIU/ML (0.358-3.740)
[2021-02-25 12:42] LABS: CREATININE,RANDOM URINE 75.3 MG/DL; TOTAL PROTEIN,RANDOM URINE 54.8 MG/DL (0.0-12.0)
== END ==
LOC: SKLAB5 09:02
PROVIDERS: ATTEND Neuromusculoskeletal Medicine & OMM
DX: N18.9 Chronic kidney disease, unspecified (principal); I70.0 Atherosclerosis of aorta; Z79.899 Other long term (current) drug therapy

== ENCOUNTER → 2021-02-26 | Outpatient (REF) | payer MEDICARE, MEDICAID ==
[2021-02-26 10:11] LABS: HEMATOCRIT 37.5 % (42.0-52.0); HEMOGLOBIN 11.6 g/dl (13.5-17.5); MEAN CORPUSCULAR HEMOGLOBIN 28.3 pg (27.0-33.0); MEAN CORPUSCULAR HGB CONC 30.9 g/dl (32.0-36.5); MEAN CORPUSCULAR VOLUME 91.5 fl (80.0-96.0); PLATELET COUNT, AUTOMATED 144 10^3/uL (150-450); WHITE BLOOD COUNT 5.9 10^3/uL (4.0-10.0)
[2021-02-26 10:37] LABS: CALCIUM LEVEL 8.6 MG/DL (8.8-10.2); CREATININE FOR GFR 1.74 MG/DL (0.70-1.30); GLOMERULAR FILTRATION RATE 39.5 (>35); POTASSIUM SERUM 3.8 MEQ/L (3.5-5.1)
== END ==
LOC: SKLAB5 09:20
PROVIDERS: ATTEND Internal Medicine
DX: R50.9 Fever, unspecified (principal)

== ENCOUNTER → 2021-02-27 | Outpatient (REF) | payer MEDICARE, MEDICAID ==
[~2021-02-27] MED LIST changes: +ACET1TAB55 PO; +CEFT1INJ5 IM; +DULC10SU2 PR; +ELIQ5TAB PO; +FLEEENE12 PR; +LATA0.0015 OU; +LEVO50TA5 PO; +MILKSUS PO
[2021-02-27 18:18] LABS: CALCIUM LEVEL 8.3 MG/DL (8.8-10.2); CREATININE FOR GFR 1.22 MG/DL (0.70-1.30); GLOMERULAR FILTRATION RATE 59.5 (>35); POTASSIUM SERUM 4.2 MEQ/L (3.5-5.1)
== END ==
LOC: SKLAB5 13:48
PROVIDERS: ATTEND Neuromusculoskeletal Medicine & OMM
DX: N18.9 Chronic kidney disease, unspecified (principal); N39.0 Urinary tract infection, site not specified

== ENCOUNTER → 2021-02-27 | Outpatient (REF) | payer MEDICARE, MEDICAID | LOC: SKLAB5 08:37 | PROVIDERS: ATTEND Neuromusculoskeletal Medicine & OMM | DX: N18.9 Chronic kidney disease, unspecified (principal); Z53.8 Procedure and treatment not carried out for other reasons ==

== ENCOUNTER → 2021-03-02 | Outpatient (REF) | payer MEDICARE, MEDICAID ==
[2021-03-02 08:55] LABS: BLOOD UREA NITROGEN 32 MG/DL (7-18); CALCIUM LEVEL 8.4 MG/DL (8.8-10.2); CARBON DIOXIDE LEVEL 26 MEQ/L (21-32); CHLORIDE LEVEL 114 MEQ/L (98-107); CREATININE FOR GFR 1.02 MG/DL (0.70-1.30); GLOMERULAR FILTRATION RATE > 60.0 (>35); GLUCOSE, FASTING 89 MG/DL (70-100); POTASSIUM SERUM 4.7 MEQ/L (3.5-5.1); SODIUM LEVEL 145 MEQ/L (136-145)
== END ==
LOC: SKLAB5 07:52
PROVIDERS: ATTEND Neuromusculoskeletal Medicine & OMM
DX: N18.9 Chronic kidney disease, unspecified (principal)

== ENCOUNTER → 2021-03-03 | Outpatient (CLI) | payer MEDICARE, MEDICAID ==
[~2021-03-03] MED LIST changes: +GASTROGRAFIN SOLUTION 30ML (Q9963) As Ordered ONE
--- NOTE | 2021-03-03 17:19 | REP ---
INDICATION: COLON CA. COMPARISON: 06/23/2017 the latest prior also without contrast TECHNIQUE: Standard helical technique without intravenous contrast administration. This causes exam limitations. Oral bowel preparatory contrast was administered. FINDINGS: Limited evaluation of the solid intra-organs and gallbladder show no gross abnormalities or significant changes from the prior exam. Limited evaluation of the pancreas, adrenal glands, and kidneys show no gross abnormalities or significant changes from the prior exam. There is no evidence of free fluid or free air. There is no significant change in appearance of the abdominal aorta or para-regions. There is no change in the appearance of the inferior vena cava filter. There is a large right inguinal hernia which contains multiple small bowel loops. This has increased in size compared to the prior exam. There is no evidence of intestinal obstruction. A small left inguinal hernia is also seen and is unchanged. There is a Underwood balloon decompressing the urinary bladder which appears somewhat dense. 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 Bone window technique throughout the examination shows a new mixed density bone lesion in the right ilium which measures 1.3 cm. There is an additional thick smell meters sized possible blastic bony lesion in the left iliac wing anteriorly. IMPRESSION: 1. Chronic intra-and intrapelvic changes as described above. 2. Bone lesions as described above suspicious for metastatic disease. This needs to be correlated clinically. 3. Other findings as described above. <Electronically signed by Michael Porter > 03/03/21 [id number]
--- NOTE | 2021-03-03 17:24 | REP ---
INDICATION: COLON CA COMPARISON: None. TECHNIQUE: Standard helical technique without the administration of intravenous contrast. This causes exam limitations. FINDINGS: There is no mediastinal or hilar adenopathy. There are no pleural or pericardial effusions. Bone window technique throughout the examination shows chronic spinal degenerative changes. Evaluation of the lung rabago shows evidence of biapical pleuroparenchymal scarring right greater than left. There are multiple incidental calcified granulomas. Curvilinear densities are seen in the lung bases with right lower lobe cystic air densities. There is no evidence of a spiculated mass. IMPRESSION: Likely chronic lung field changes as described above, however, since there is no prior examination for comparison three-month follow-up chest CT is suggested. <Electronically signed by Michael Porter > 03/03/21 [id number]
== END ==
LOC: M RAD 15:17
PROVIDERS: ATTEND Internal Medicine Medical Oncology
DX: C18.9 Malignant neoplasm of colon, unspecified (principal); K40.20 Bilateral inguinal hernia, without obstruction or gangrene, not specified as recurrent; N32.3 Diverticulum of bladder; M89.9 Disorder of bone, unspecified
CPT/HCPCS: 71250; 74176; Q9963

== ENCOUNTER → 2021-03-31 | Outpatient (REF) | payer MEDICARE, MEDICAID ==
[~2021-03-31] MED LIST changes: -FENO48TA7 PO; +FENO48TA8 PO; -GASTROGRAFIN SOLUTION 30ML (Q9963) As Ordered ONE
== END ==
LOC: SKLAB5 11:15
PROVIDERS: ATTEND Internal Medicine
DX: Z20.822 Contact with and (suspected) exposure to COVID-19 (principal)

== ENCOUNTER → 2021-04-02 | Outpatient (REF) | payer MEDICARE, MEDICAID | LOC: SKLAB5 08:53 | PROVIDERS: ATTEND Internal Medicine | DX: Z20.822 Contact with and (suspected) exposure to COVID-19 (principal) ==

== ENCOUNTER → 2021-04-06 | Outpatient (REF) | payer MEDICARE, MEDICAID | LOC: SKLAB5 06:10 | PROVIDERS: ATTEND Internal Medicine | DX: Z20.822 Contact with and (suspected) exposure to COVID-19 (principal) ==

== ENCOUNTER → 2021-04-09 | Outpatient (REF) | payer MEDICARE, MEDICAID | LOC: SKLAB5 05:58 | PROVIDERS: ATTEND Internal Medicine | DX: Z20.822 Contact with and (suspected) exposure to COVID-19 (principal) ==

== ENCOUNTER → 2021-04-13 | Outpatient (REF) | payer MEDICARE, MEDICAID | LOC: SKLAB5 05:19 | PROVIDERS: ATTEND Internal Medicine | DX: Z20.822 Contact with and (suspected) exposure to COVID-19 (principal) ==

== ENCOUNTER → 2021-04-16 | Outpatient (REF) | payer MEDICARE, MEDICAID | LOC: SKLAB5 09:00 | PROVIDERS: ATTEND Internal Medicine | DX: Z20.822 Contact with and (suspected) exposure to COVID-19 (principal) ==

== ENCOUNTER → 2021-04-22 | Outpatient (REF) | payer MEDICARE, MEDICAID | LOC: SKLAB5 13:27 | PROVIDERS: ATTEND Internal Medicine | DX: Z20.822 Contact with and (suspected) exposure to COVID-19 (principal) ==

== ENCOUNTER → 2021-04-29 | Outpatient (REF) | payer MEDICARE, MEDICAID | LOC: SKLAB5 07:47 | PROVIDERS: ATTEND Internal Medicine | DX: Z20.822 Contact with and (suspected) exposure to COVID-19 (principal) ==

== ENCOUNTER → 2021-05-19 | Outpatient (REF) | payer MEDICARE, MEDICAID | LOC: SKLAB5 10:51 | PROVIDERS: ATTEND Internal Medicine | DX: Z20.822 Contact with and (suspected) exposure to COVID-19 (principal) ==

== ENCOUNTER → 2021-05-22 | Outpatient (REF) | payer MEDICARE, MEDICAID | LOC: SKLAB5 13:50 | PROVIDERS: ATTEND Internal Medicine | DX: R31.9 Hematuria, unspecified (principal) ==

== ENCOUNTER → 2021-05-27 | Outpatient (REF) | payer MEDICARE, MEDICAID | LOC: SKLAB5 13:38 | PROVIDERS: ATTEND Internal Medicine | DX: Z20.822 Contact with and (suspected) exposure to COVID-19 (principal) ==

== ENCOUNTER → 2021-06-03 | Outpatient (REF) | payer MEDICARE, MEDICAID | LOC: SKLAB5 14:24 | PROVIDERS: ATTEND Internal Medicine | DX: Z20.822 Contact with and (suspected) exposure to COVID-19 (principal) ==

== ENCOUNTER → 2021-06-10 | Outpatient (REF) | payer MEDICARE, MEDICAID | LOC: SKLAB5 11:00 | PROVIDERS: ATTEND Internal Medicine | DX: Z20.822 Contact with and (suspected) exposure to COVID-19 (principal) ==

== ENCOUNTER → 2021-06-17 | Outpatient (REF) | payer MEDICARE, MEDICAID | LOC: SKLAB5 06:26 | PROVIDERS: ATTEND Internal Medicine | DX: Z20.822 Contact with and (suspected) exposure to COVID-19 (principal) ==

== ENCOUNTER → 2021-07-12 | Outpatient (CLI) | payer MEDICARE, MEDICAID | LOC: SKLAB5 05:43 | PROVIDERS: ATTEND Internal Medicine | DX: R19.5 Other fecal abnormalities (principal); Z85.46 Personal history of malignant neoplasm of prostate; N18.9 Chronic kidney disease, unspecified; D64.9 Anemia, unspecified; Z86.718 Personal history of other venous thrombosis and embolism ==

== ENCOUNTER → 2021-08-27 | Outpatient (REF) | payer MEDICARE, MEDICAID ==
[2021-08-27 11:53] LABS: HEMATOCRIT 40.1 % (42.0-52.0); HEMOGLOBIN 12.7 g/dl (13.5-17.5); MEAN CORPUSCULAR HGB CONC 31.7 g/dl (32.0-36.5); MEAN CORPUSCULAR VOLUME 91.6 fl (80.0-96.0); PLATELET COUNT, AUTOMATED 218 10^3/uL (150-450); RED BLOOD COUNT 4.38 10^6/uL (4.30-6.10); WHITE BLOOD COUNT 7.9 10^3/uL (4.0-10.0)
[2021-08-27 12:42] LABS: BILIRUBIN,TOTAL 0.4 MG/DL (0.2-1.0); CALCIUM LEVEL 8.5 MG/DL (8.8-10.2); CREATININE FOR GFR 1.25 MG/DL (0.70-1.30); GLOMERULAR FILTRATION RATE 57.9 (>35); PERCENT SATURATION 25.7 % (19.7-50.0); TOTAL PROTEIN 5.9 GM/DL (6.4-8.2)
== END ==
LOC: SKLAB5 07:31
PROVIDERS: ATTEND Internal Medicine
DX: N18.30 Chronic kidney disease, stage 3 unspecified (principal); D64.9 Anemia, unspecified; I12.9 Hypertensive chronic kidney disease with stage 1 through stage 4 chronic kidney disease, or unspecified chronic kidney disease

== ENCOUNTER → 2021-10-13 | Outpatient (REF) | payer MEDICARE, MEDICAID ==
[2021-10-13 14:46] LABS: HEMATOCRIT 42.9 % (42.0-52.0); HEMOGLOBIN 13.3 g/dl (13.5-17.5); MEAN CORPUSCULAR HEMOGLOBIN 28.5 pg (27.0-33.0); MEAN CORPUSCULAR VOLUME 92.1 fl (80.0-96.0); PLATELET COUNT, AUTOMATED 238 10^3/uL (150-450); RED BLOOD COUNT 4.66 10^6/uL (4.30-6.10); WHITE BLOOD COUNT 8.7 10^3/uL (4.0-10.0)
[2021-10-13 15:03] LABS: CREATININE FOR GFR 1.24 MG/DL (0.70-1.30); GLOMERULAR FILTRATION RATE 58.4 (>35)
== END ==
LOC: SKLAB5 10:34
PROVIDERS: ATTEND Internal Medicine
DX: M54.9 Dorsalgia, unspecified (principal); R41.0 Disorientation, unspecified; M25.78 Osteophyte, vertebrae

== ENCOUNTER → 2021-10-16 | Outpatient (REF) | payer MEDICARE, MEDICAID ==
[2021-10-16 14:51] LABS: HEMATOCRIT 39.2 % (42.0-52.0); HEMOGLOBIN 12.3 g/dl (13.5-17.5); MEAN CORPUSCULAR HEMOGLOBIN 29.1 pg (27.0-33.0); MEAN CORPUSCULAR HGB CONC 31.4 g/dl (32.0-36.5); MEAN CORPUSCULAR VOLUME 92.9 fl (80.0-96.0); PLATELET COUNT, AUTOMATED 202 10^3/uL (150-450); RED BLOOD COUNT 4.22 10^6/uL (4.30-6.10); WHITE BLOOD COUNT 8.2 10^3/uL (4.0-10.0)
[2021-10-16 14:59] LABS: ALBUMIN 2.8 GM/DL (3.2-5.2); BILIRUBIN,TOTAL 0.3 MG/DL (0.2-1.0); CALCIUM LEVEL 8.8 MG/DL (8.8-10.2); CREATININE FOR GFR 1.36 MG/DL (0.70-1.30); GLOMERULAR FILTRATION RATE 52.5 (>35); POTASSIUM SERUM 3.8 MEQ/L (3.5-5.1); TOTAL PROTEIN 6.2 GM/DL (6.4-8.2)
== END ==
LOC: SKLAB5 09:33
PROVIDERS: ATTEND Internal Medicine
DX: N39.0 Urinary tract infection, site not specified (principal)